=== PATIENT | female | born 1985 | race Caucasian/White ===

== ENCOUNTER → 2017-09-20 | Outpatient (CLI) | payer BC | LOC: MAMMO 15:29 | PROVIDERS: ATTEND Obstetrics & Gynecology | DX: Z12.31 Encounter for screening mammogram for malignant neoplasm of breast (principal) | CPT/HCPCS: 77067 ==

== ENCOUNTER 2018-07-22 07:13 | Emergency (ER) | payer BC ==
[~2018-07-22] VITALS: Ht 154.9 cm; Wt 48.1 kg
--- OUTSIDE RECORDS SUMMARY | 2018-07-22 07:16 | XMS REPORT ---
Author Author [facility] Address Unknown Phone Unavailable Care Team Providers Care Corrugator Machine Operator Name Role Phone Gina MCPHERSON Unavailable Unavailable Problems This patient has no known problems. Allergies, Adverse Reactions, Alerts This patient has no known allergies or adverse reactions. Medications This patient has no known medications. Results Test Description Test Time Test Comments Text Results Atomic Results Result Comments MAMMOGRAPHY DIGITAL SCR BILAT [place] [id number] [place] [id number] Patient Name: SARA LANCASTER MR #: [id number] : 1985 Age/Sex: 32/F Req #: [id number] [facility] Physician: Ordered by: AIMEE MCPHERSON M.D. Report #: [id number] Location: MAMMO Room/Bed: Procedure: [id number] MG/MAMMOGRAPHY DIGITAL SCR BILAT Exam Date: 09/20/17 Exam Time: 1539 REPORT STATUS: Signed #[id number] - [id number] #BILATERAL DIGITAL SCREENING MAMMOGRAM WITH CAD: 09/20/2017 CLINICAL: Routine screening. No prior exams were available for comparison. Current study contains 4 films. The tissue of both breasts is extremely dense, which lowers the sensitivity of mammography. Current study was also evaluated with a Computer Aided Detection (CAD) system. No significant masses, calcifications, or other findings are seen in either breast. IMPRESSION: BENIGN There is no mammographic evidence of malignancy. A 1 year screening mammogram is recommended. The patient will be notified by letter of the results. Donaldo rodriguez/carlo:10/02/2017 08:06:59 Scallop Raker: Mona BRYANT)(Annemarie), [facility] letter sent: Normal Exam Mammogram BI-RADS: 2 Benign Dictated By: DONALDO MESSINA DO 5 Transcribed By: CARLO on 10/02/17805 COPY TO: AIMEE MCPHERSON M.D.
--- NOTE | 2018-07-22 07:26 | NUR ---
ULTRASOUND CALLED BY COVER STITCH MACHINE OPERATOR
--- NOTE | 2018-07-22 07:27 | NUR ---
BLOOD BANDED X 2 NURSE SIGN OFF PER POLICY. ALL STICKERS VERIFIED.
--- NOTE | 2018-07-22 07:30 | NUR ---
LABS TAKEN TO MAIN [facility]
--- NOTE | 2018-07-22 07:39 | NUR ---
SKIVER MACHINE OPERATOR CALLED CONFIRMING 45 MINS ETA.
[2018-07-22 07:45] LABS: BASOPHILS # (AUTO) 0.1 (0.0-0.1); BASOPHILS % 0.9 % (0.0-1.0); EOSINOPHILS # (AUTO) 0.1 (0.0-0.4); EOSINOPHILS % 1.7 % (0.0-6.0); HEMATOCRIT 36.2 % (34.2-44.1); HEMOGLOBIN 12.1 g/dL (12.0-16.0); LYMPHOCYTES # (AUTO) 2.1 (1.0-3.2); LYMPHOCYTES % 27.6 % (18.0-39.1); MEAN CORPUSCULAR HEMOGLOBIN 28.9 pg (28-32); MEAN CORPUSCULAR HGB CONC 33.4 g/dL (31-35); MEAN CORPUSCULAR VOLUME 86.4 fL (81-99); MONOCYTES # (AUTO) 0.8 (0.2-0.8); MONOCYTES % 10.9 % (4.4-11.3); NEUTROPHILS # (AUTO) 4.6 (2.1-6.9); NEUTROPHILS % 58.8 % (38.7-80.0); PLATELET COUNT 321 x10e3/uL (140-360); RED BLOOD COUNT 4.19 x10e6/uL (3.6-5.1); RED CELL DISTRIBUTION WIDTH 12.1 % (11.7-14.4)
--- NOTE | 2018-07-22 08:48 | NUR ---
updated pt on lab values. setup technician in room doing testing.
--- NOTE | 2018-07-22 09:36 | Diagnostic Imaging Report ---
EXAM: US TRANSVAG OB 1ST-HOPD DATE: 07/22/2018 12:00 AM Time stamp on exam: 9:00 AM INDICATION: , spotting and cramping COMPARISON: None TECHNIQUE: Transvaginal sonographic images of the pelvis were obtained using henry scale and color doppler. Transvaginal imaging was medically necessary to better evaluate the fetus. G 3P0A 0 LMP 06/09/2018 FINDINGS: UTERUS: Size: 6.4 x 3.5 cm Mass: None Cervix: A cystic area is seen in the cervical canal measuring 0.4 x 0.4 x 0.6 cm. GESTATIONAL SAC: No intrauterine gestational sac is identified. YOLK SAC: Not visualized EMBRYO/FETUS: No embryo or pole is seen. RIGHT OVARY: 2.9 x 2.4 x 2.3 cm No abnormal cysts or masses. LEFT OVARY: 2.0 x 1.5 x 2.2 cm No abnormal cysts or masses. CUL-DE-SAC: No free fluid. IMPRESSION: No intrauterine gestational sac is identified. No abnormal mass or fluid collection is seen in either adnexa. This likely represents a failed gestation, although of uncertain location is also possible. Recommend correlation with beta hCG trend and follow-up ultrasound if indicated. Signed by: Dr. Dominic Griggs M.D. on 07/22/2018 9:33 AM
== END 2018-07-22 10:00 | disposition home or self-care (01) ==
LOC: FSED 07:13
DX: O20.9 Hemorrhage in early pregnancy, unspecified (principal); R10.2 Pelvic and perineal pain; O03.9 Complete or unspecified spontaneous abortion without complication
CPT/HCPCS: 36415; 76817; 84702; 85025; 86900; 99284

== ENCOUNTER → 2018-07-27 | Emergency (ER) | payer BC ==
[~2018-07-27] VITALS: Ht 154.9 cm; Wt 48.1 kg
== END | disposition home or self-care (01) ==
LOC: FSED 18:37
DX: O00.109 Unspecified tubal pregnancy without intrauterine pregnancy (principal)
CPT/HCPCS: 36415; 84702; 99282

== ENCOUNTER 2019-02-11 01:26 | Emergency (ER) | payer BC, OTHER ==
[~2019-02-11] VITALS: Ht 154.9 cm; Wt 48.1 kg
[2019-02-11] MEDS: CIPROFLOXACIN 500 MG TAB PO SCH (01:43)
[2019-02-11] MEDS ORDERED: CIPROFLOXACIN 500 MG TAB ONE (01:45)
== END 2019-02-11 02:00 | disposition home or self-care (01) ==
LOC: FSED 01:26
DX: Z76.0 Encounter for issue of repeat prescription (principal); Z20.811 Contact with and (suspected) exposure to meningococcus
CPT/HCPCS: 99282

== ENCOUNTER → 2019-10-21 | Outpatient (CLI) | payer BC ==
[~2019-10-21] MED LIST: IOPAMIDOL 300 MG/ML 15ML VIAL IT ONE
--- NOTE | 2019-10-21 15:34 | Diagnostic Imaging Report ---
Date: 10/21/2019 Procedure: Hysterosalpingogram print line operator: Desirae Bonilla MD Assistants: None Pre-operative diagnosis: Primary dysmenorrhea Post-operative diagnosis: Same Conscious Sedation: None. Additional Medications: Fluoroscopy time: 0.9 minutes Cumulative Dose: 8.2mGy Contrast used: Isovue 370 10cc Estimated blood loss: None Specimens: NA Implants: NA FINDINGS: Using sterile technique, a speculum was inserted in the vagina and the cervix directly visualized. Using sterile technique following antiseptic swab of the cervix, an HSG catheter was inserted via the cervix into the uterus and the retention balloon inflated. Dilute contrast was injected. HSG images demonstrate opacification of the small uterus as well as a very narrow right fallopian tube. The right fallopian tube is patent, as evidenced by free peritoneal flow of contrast. The left tube is not visualized, consistent with reported history of left salpingo-oophorectomy. IMPRESSION: Small uterine cavity. Patent narrow right fallopian tube. Signed by: Desirae Bonilla MD on 10/21/2019 3:30 PM
== END ==
LOC: DX 07:58
PROVIDERS: ATTEND Obstetrics & Gynecology Reproductive Endocrinology
DX: N94.4 Primary dysmenorrhea (principal); N80.9 Endometriosis, unspecified
CPT/HCPCS: 58340; 74740; 81025; Q9967